=== PATIENT | male | born 1960 | race Caucasian/White ===

== ENCOUNTER 2017-02-03 10:18 | Emergency (ER) | payer BC ==
[~2017-02-03] VITALS: Ht 175.3 cm; Wt 144.5 kg
[~2017-02-03 10:18] MED LIST: ALPR.5 PO; LOSA100T PO; METH4PAK PO; PARO30TA2 PO; TAMS5CAP PO
[2017-02-03 10:38] VITALS: BP 188/88; PULSE 88; RESP 18; TEMP 98.3; O2SAT 94
[2017-02-03] MEDS ORDERED: COLC1CAP3 PO ×2 (10:58→11:44)
[2017-02-03] MEDS ORDERED: NAPROXEN 500 MG TAB PO ONE (11:00)
[2017-02-03] MEDS ORDERED: ACETAMINOPHEN/HYDROcodone 325 MG/5 MG TAB PO ONE (11:00)
[2017-02-03] MEDS ORDERED: HYDR-3533 PO (11:44)
[2017-02-03] MEDS ORDERED: NAPR500 PO (11:44)
--- NOTE | 2017-02-03 11:44 | PD ---
HPI Chief Complaint: Pain: Acute or Chronic Time Seen by Provider: 10:47 Travel History International Travel<30 days: No Contact w/Intl Traveler<30days: No Traveled to known affect area: No History of Present Illness HPI 56-year-old man presents emergency prior right foot pain. States she has a history of gout. He feels like his gout. States did offer couple days. She been worse since yesterday. He runs and walks and yesterday. He states and colchicine in the past which has helped but he states it is very expensive. No other complaints. History Past Medical History Narrative Medical Gout Hypertension Asthma Tetanus Vaccination: Unknown Influenza Vaccination: No Social History Alcohol Use: Yes (OCC) Tobacco Use: No Allergies-Medications (Allergen,Severity, Reaction): Coded Allergies: No Known Allergies (Unverified , 12/16/16) Reported Meds & Prescriptions Reported Meds & Active Scripts Active Paroxetine (Paroxetine HCl) 30 Mg Tab 30 Mg PO DAILY Losartan (Losartan Potassium) 100 Mg Tab 100 Mg PO DAILY Flomax (Tamsulosin HCl) 0.4 Mg Cap 0.4 Mg PO HS Reported Colchicine 0.6 Mg Cap 0.6 Mg PO BID Review of Systems Except as stated in HPI: all other systems reviewed are Neg Physical Exam Narrative GENERAL: Well-appearing 56 year-old woman, no acute distress. SKIN: Warm and dry. CARDIOVASCULAR: Warm and well perfused. RESPIRATORY: Normal rate and effort. MUSCULOSKELETAL: Focused examination of the right foot reveals some generalized swelling of the foot compared to the left. Is a little warm. The foot is mildly tender. There is no open wounds. Pulses are intact. NEUROLOGICAL: Awake and alert. No gross deficits. Data Data Last Documented VS Vital Signs Date Time Temp Pulse Resp B/P Pulse Ox O2 Delivery O2 Flow Rate FiO2 02/03/17 10:38 98.3 88 18 188/88 94 Orders Acetamin-Hydrocod 325-5 Mg ([place] 5-325 (02/03/17 11:00) Naproxen (Naprosyn) (02/03/17 11:00) MDM Medical Decision Making Medical Screen Exam Complete: Yes Emergency Medical Condition: Yes Differential Diagnosis Gout, infection, fracture trauma, other Narrative Course Medical decision-making 56 year-old woman presents to the emergency department complaining of right foot pain consistent with previous gout flares. He looks otherwise well. No trauma. Diagnosis Primary Impression: Gout Patient Instructions: General Instructions Additional Instructions: Take medications as prescribed. Return to the emergency department for any worsening pain redness or swelling. Follow up with your primary doctor in 1-2 days. Med/Other Pt SpecificInfo: Prescription(s) given Scripts Naproxen (Naprosyn)500 Mg Psd455 Mg PO BID PRN (PAIN SCALE 1 TO 10) #20 TAB Prov:Neel Pickering MD 02/03/17 Hydrocodone-Acetaminophen (Lortab)5-325 Mg Tab1-2 Tab PO Q6H PRN (PAIN) #12 TAB Prov:Neel Pickering MD 02/03/17 Colchicine 0.6 Mg Cap0.6 Mg PO BID #20 CAP Ref 0 2 tab at the first sign of flare, followed in 1 hour with a single tab start twice daily after 12 hours Prov:Neel Pickering MD 02/03/17 Disposition: 01 DISCHARGE HOME Condition: Stable Neel Pickering MD Feb 03, 2017 11:44
[2017-03-25] MEDS ORDERED: TAMS5CAP PO (17:21)
[2017-03-25] MEDS ORDERED: PARO30TA2 PO (17:21)
[2017-03-28] MEDS ORDERED: TAMS5CAP PO (09:14)
== END 2017-02-03 12:06 | disposition home or self-care (01) ==
LOC: PHED 10:18
DX: M10.9 Gout, unspecified (principal); I10 Essential (primary) hypertension
CPT/HCPCS: 99284

== ENCOUNTER 2017-04-08 15:07 | Emergency (ER) | payer BC ==
[~2017-04-08] VITALS: Ht 175.3 cm; Wt 136.0 kg
[~2017-04-08 15:07] MED LIST changes: -ALPR.5 PO; +COLC1CAP3 PO; +HYDR-3533 PO; -METH4PAK PO; +NAPR500 PO
[2017-04-08 15:16] VITALS: BP 181/102; PULSE 85; RESP 16; TEMP 99.1; O2SAT 94
[2017-04-08] MEDS ORDERED: INDO50CA PO (16:11)
[2017-04-08] MEDS ORDERED: TRAM50TA PO (16:11)
[2017-04-08] MEDS ORDERED: methylPREDNISolone SOD SUCC 125 MG/2 ML VIAL IM ONE (16:15)
--- NOTE | 2017-04-08 16:21 | PD ---
HPI Chief Complaint: Musculoskeletal Complaint Time Seen by Provider: 15:28 Travel History International Travel<30 days: No Contact w/Intl Traveler<30days: No Traveled to known affect area: No History of Present Illness HPI This patient complains of left ankle pain and inflammation. He has history of gout and it feels like he is having a gout flare. No injury. No fever. Pain is worse with weightbearing. PFSH Past Medical History Anxiety: Yes Cardiovascular Problems: Yes (htn on meds) Diminished Hearing: No GERD: Yes Gout: Yes Genitourinary: Yes (BPH) Hiatal Hernia: Yes Hypertension: Yes Tetanus Vaccination: Unknown Influenza Vaccination: No Past Surgical History Abdominal Surgery: Yes (UMBILICAL HERNIA REPAIR X 2) Social History Alcohol Use: Yes (OCC) Tobacco Use: No (QUIT 25 YARS AGO) Substance Use: No Allergies-Medications (Allergen,Severity, Reaction): Coded Allergies: No Known Allergies (Unverified , 04/08/17) Reported Meds & Prescriptions Reported Meds & Active Scripts Active Indomethacin 50 Mg Cap 50 Mg PO TID 5 Days Take with food, milk, or antacids to decrease stomach adverse effects. Tramadol (Tramadol HCl) 50 Mg Tab 50 Mg PO Q6H PRN Flomax (Tamsulosin HCl) 0.4 Mg Cap 0.4 Mg PO HS Paroxetine (Paroxetine HCl) 30 Mg Tab 30 Mg PO DAILY Losartan (Losartan Potassium) 100 Mg Tab 100 Mg PO DAILY Review of Systems General / Constitutional: Positive: Fever HENT: Positive: Headaches Cardiovascular: Positive: Chest Pain or Discomfort Physical Exam Narrative GASTROINTESTINAL: Abdomen soft, non-tender, nondistended. Positive bowel sounds. No hepato-splenomegaly, or palpable masses. No guarding. SKIN: Focused skin assessment reveals no rash or ulcers. Skin is warm and dry. Palpation shows no induration or nodules. Psych: Normal mood and affect. Normal insight and judgment. Left ankle: Some inflammation and warmth. No erythema. No pain with passive motion. No bruising or open wound Data Data Last Documented VS Vital Signs Date Time Temp Pulse Resp B/P (MAP) Pulse Ox O2 Delivery O2 Flow Rate FiO2 04/08/17 15:16 99.1 85 16 181/102 (128) 94 Orders Orders Methylprednisolone So Succ Inj (Solumedr (04/08/17 16:15) [facility] Medical Decision Making Medical Screen Exam Complete: Yes Emergency Medical Condition: Yes Medical Record Reviewed: Yes Differential Diagnosis Gout flare, ankle sprain, cellulitis Narrative Course I have reviewed the patient's electronic medical record. Presentation seems consistent with gout flare. Not consistent with septic joint. I gave him Solu-Medrol injection. Prescription for Indocin and tramadol I advised him to take Zantac with the Indocin to limit GI side effects He should ice and elevate and limit weightbearing Diagnosis Primary Impression: Gout flare Qualified Codes: M10.9 - Gout, unspecified Additional Instructions: Ice and elevate left ankle Limit weightbearing Takes Zantac with Indocin to limit heartburn The patient was warned about potential sedation for the medications they will receive on prescription. The patient was advised to follow up with their physician and return if they worsen. Med/Other Pt SpecificInfo: Prescription(s) given Scripts Indomethacin (Indomethacin) 50 Mg Cap 50 MG PO TID for 5 Days, CAP 0 Refills Take with food, milk, or antacids to decrease stomach adverse effects. Prov: Alli Baig MD 04/08/17 Tramadol (Tramadol) 50 Mg Tab 50 MG PO Q6H Y for PAIN, #20 TAB 0 Refills Prov: Alli Baig MD 04/08/17 Disposition: 01 DISCHARGE HOME Condition: Stable Alli Baig MD Apr 08, 2017 16:21
== END 2017-04-08 16:33 | disposition home or self-care (01) ==
LOC: PHED 15:07
DX: M10.9 Gout, unspecified (principal); I10 Essential (primary) hypertension
CPT/HCPCS: 96372; 99284; J2930

== ENCOUNTER 2017-09-05 13:42 | Emergency (ER) | payer BC ==
[~2017-09-05] VITALS: Ht 175.3 cm; Wt 148.0 kg
[~2017-09-05 13:42] MED LIST changes: -COLC1CAP3 PO; -HYDR-3533 PO; +INDO50CA PO; -NAPR500 PO; +TRAM50TA PO
[2017-09-05 13:46] VITALS: BP 210/105; PULSE 71; RESP 16; TEMP 98.1; O2SAT 94
[2017-09-05] MEDS ORDERED: ORPHENADRINE INJ 60 MG/2 ML AMP IM ONE (14:15)
[2017-09-05] MEDS ORDERED: KETOROLAC TROMETHAMINE 60 MG/2 ML (IM) VIAL IM ONE (14:15)
--- NOTE | 2017-09-05 14:36 | RADRPT ---
EXAM DATE/TIME: 09/05/2017 14:18 [place] COMPARISON: No previous studies available for comparison. INDICATIONS : Right hip pain MEDICAL HISTORY : Gastroesophageal reflux disease. SURGICAL HISTORY : Umbilical hiatal hernia repair ENCOUNTER: Initial ACUITY: 4 - 6 days PAIN SCORE: 10/10 LOCATION: Right hip FINDINGS: Bone density is normal. Moderate narrowing of the hip with acetabular osteophyte formation and osteo phytosis. There is moderate osteoarthritis of left hip as well and severe degenerative disc disease a t L4-5 and L5-S1. CONCLUSION: Degenerative changes are noted as above. Mihai Belle MD on September 05, 2017 at 14:33 Board Certified Radiologist. This report was verified electronically.
[2017-09-05] MEDS ORDERED: HYDR-3516 PO (14:45)
[2017-09-05] MEDS ORDERED: DICL75TA PO (14:45)
[2017-09-05] MEDS ORDERED: ROBA500T PO (14:45)
--- NOTE | 2017-09-05 14:51 | PD ---
HPI Chief Complaint: Back/ Neck Pain or Injury Time Seen by Provider: 13:57 Travel History International Travel<30 days: No Contact w/Intl Traveler<30days: No Traveled to known affect area: No History of Present Illness HPI 57-year-old male that presents to the ED for evaluation of right hip pain with no injury. Per patient he is having right hip pain radiates down the leg. Per patient has history gout process that this feels different. Per patient has had sciatica in the past and does feel somewhat like that. Denies any injuries or falls. Per patient about 3 weeks ago he did have a fall but onto his left side and sprained his ankle on the left side. He denies any other injuries since. Has not taken anything for this. Has no allergies to medication. Per patient the pain gets worse with any movement. Especially with putting pressure on that same area. Per patient most the pain is on the right hip area. Pain per patient is 8 out of 10 and gets worse with movement and with weightbearing. No allergies to medication. No numbness, tingling, weakness. No back or neck pain. PFSH Past Medical History Anxiety: Yes Cardiovascular Problems: Yes (HTN) Diminished Hearing: No GERD: Yes Gout: Yes Genitourinary: Yes (BPH) Hiatal Hernia: Yes Hypertension: Yes Tetanus Vaccination: Unknown Influenza Vaccination: No ?: Not Past Surgical History Abdominal Surgery: Yes (UMBILICAL HERNIA REPAIR X 2) Social History Alcohol Use: Yes (OCC) Tobacco Use: No (QUIT 25 YARS AGO) Substance Use: No Allergies-Medications (Allergen,Severity, Reaction): Coded Allergies: No Known Allergies (Unverified , 04/08/17) Reported Meds & Prescriptions Reported Meds & Active Scripts Active Robaxin (Methocarbamol) 500 Mg Tab 500 Mg PO QID Hydrocodone-Acetaminophen 5-325 mg Tab 1 Tab PO Q6H PRN Diclofenac Sodium DR (Diclofenac Sodium) 75 Mg Tabdr 75 Mg PO BID PRN Indomethacin 50 Mg Cap 50 Mg PO TID 5 Days Take with food, milk, or antacids to decrease stomach adverse effects. Tramadol (Tramadol HCl) 50 Mg Tab 50 Mg PO Q6H PRN Flomax (Tamsulosin HCl) 0.4 Mg Cap 0.4 Mg PO HS Paroxetine (Paroxetine HCl) 30 Mg Tab 30 Mg PO DAILY Losartan (Losartan Potassium) 100 Mg Tab 100 Mg PO DAILY Review of Systems Except as stated in HPI: all other systems reviewed are Neg Physical Exam Narrative GENERAL: SKIN: Warm and dry. HEAD: Atraumatic. Normocephalic. EYES: Pupils equal and round. No scleral icterus. No injection or drainage. ENT: No nasal bleeding or discharge. Mucous membranes pink and moist. NECK: Trachea midline. No JVD. CARDIOVASCULAR: Regular rate and rhythm. RESPIRATORY: No accessory muscle use. Clear to auscultation. Breath sounds equal bilaterally. GASTROINTESTINAL: Abdomen soft, non-tender, nondistended. Hepatic and splenic margins not palpable. MUSCULOSKELETAL: Extremities without clubbing, cyanosis, or edema. No obvious deformities. No lumbar, thoracic, cervical spine tenderness to palpation. Patient has pain with range of motion of the right hip as well as with touch on the right hip. 2+ pulses bilaterally. Sensation intact bilaterally. Straight leg test negative bilaterally. No obvious bony deformity or swelling noted. NEUROLOGICAL: Awake and alert. No obvious cranial nerve deficits. Motor grossly within normal limits. Five out of 5 muscle strength in the arms and legs. Normal speech. PSYCHIATRIC: Appropriate mood and affect; insight and judgment normal. Data Data Last Documented VS Vital Signs Date Time Temp Pulse Resp B/P (MAP) Pulse Ox O2 Delivery O2 Flow Rate FiO2 09/05/17 13:46 98.1 71 16 210/105 (140) 94 Orders Orders Hip, Uni(Ap&Lat) W Ap Pelvis (09/05/17 14:03) Ice/Cold Pack (09/05/17 14:03) Ketorolac Inj (Toradol Inj) (09/05/17 14:15) Orphenadrine Inj (Norflex Inj) (09/05/17 14:15) Ed Discharge Order (09/05/17 14:47) [facility] Medical Decision Making Medical Screen Exam Complete: Yes Emergency Medical Condition: Yes Medical Record Reviewed: Yes Interpretation(s) xray of the right hip negative for acute but DJD noted on lumbar and hip joints Differential Diagnosis Sciatica versus muscle strain versus hip injury versus gout versus fracture versus arthritis Narrative Course 57-year-old male that presents to the ED for evaluation of right hip injury. Patient was properly examined and was found to have signs and symptoms consistent appears to be right hip pain. Possible sciatica. X-ray was done. X -ray was negative for acute disease other than for chronic changes. He does appear to have moderate arthritis and could be related to this. I do recommend at this time, anti-inflammatories as well as muscle relaxant and pain medication. Patient agrees. Patient was given injections here with relief. Told to follow closely with PCP. See ED worsening symptoms. Ice or warm compresses. Diagnosis Primary Impression: Sciatica of right side Patient Instructions: General Instructions Additional Instructions: Take medications as prescribed. Follow-up with PCP. See ED for any worsening symptoms. Do not drink or drive while taking pain medication. Apply ice or heat as needed for pain Med/Other Pt SpecificInfo: Prescription(s) given Scripts Methocarbamol (Robaxin) 500 Mg Tab 500 MG PO QID for Muscle Spasm, #15 TAB 0 Refills Prov: Alli Baig MD 09/05/17 Hydrocodone-Acetaminophen (Hydrocodone-Acetaminophen) 5-325 mg Tab 1 TAB PO Q6H Y for PAIN, #12 TAB 0 Refills Prov: Alli Baig MD 09/05/[address] (Diclofenac Sodium DR) 75 Mg Tabdr 75 MG PO BID Y for PAIN SCALE 1 TO 10, #20 TAB 0 Refills Prov: Alli Baig MD 09/05/17 Disposition: 01 DISCHARGE HOME Condition: Stable Lui Persaud Sep 05, 2017 14:51
== END 2017-09-05 15:17 | disposition home or self-care (01) ==
LOC: PHEFT 13:42
DX: M54.31 Sciatica, right side (principal); I10 Essential (primary) hypertension
CPT/HCPCS: 73502; 96372; 99283; J1885; J2360